=== PATIENT | female | born 1990 | race Two or more races ===

== ENCOUNTER 2022-11-30 15:43 | Inpatient (IN) | payer OTHER ==
[~2022-11-30] VITALS: Ht 160 cm; Wt 72.6 kg
[2022-12-07] MEDS ORDERED: FOLIC ACID20 MG PO (09:09)
[2022-12-07] MEDS ORDERED: PRENATAL TABLE1 EAC1 PO (09:09)
== END 2022-12-09 12:58 | disposition home or self-care (01) | DRG 807 ==
LOC: LDR 12-04 12:57 → OB/GYN 12-07 05:26 → LDR 12-07 05:26 → OB/GYN 12-07 17:21
PROVIDERS: ADMIT Obstetrics & Gynecology; ATTEND Obstetrics & Gynecology
PROC: 10E0XZZ Delivery of Products of Conception, External Approach (ICD-10-PCS; principal; 2022-12-07)
PROC: 4A1HXCZ Monitoring of Products of Conception, Cardiac Rate, External Approach (ICD-10-PCS; 2022-12-07)
DX: O80 Encounter for full-term uncomplicated delivery (principal); O99.824 Streptococcus B carrier state complicating childbirth; Z37.0 Single live birth; Z3A.40 40 weeks gestation of pregnancy; Z20.822 Contact with and (suspected) exposure to COVID-19

== ENCOUNTER 2022-12-02 14:04 | Outpatient (CLI) | payer OTHER | END 2022-12-02 14:55 | disposition home or self-care (01) | LOC: NST 14:04 | PROVIDERS: ATTEND Obstetrics & Gynecology Gynecology | DX: Z34.83 Encounter for supervision of other normal pregnancy, third trimester (principal) ==